=== PATIENT | female | born 1970 | race Caucasian/White ===

== ENCOUNTER 2016-05-03 21:06 | Emergency (ER) | payer SELFPAY ==
[~2016-05-03] VITALS: Ht 160 cm; Wt 56.7 kg
[2016-05-03 21:08] VITALS: BP 144/89
--- NOTE | 2016-05-03 21:19 | NUR ---
PAC NUSHA AT BEDSIDE FOR EVAL.
--- NOTE | 2016-05-03 22:12 | NUR ---
DR. BARRAZA AT BEDSIDE FOR EVAL.
[2016-05-03] MEDS ORDERED: TDAP [DIPH/PERTUSSIS/TET] 0.5 ML VIAL IM ONE ×2 (22:22→22:30)
[2016-05-03] MEDS ORDERED: CEPHALEXIN MONOHYDRATE 500 MG CAPSULE PO ONE ×2 (22:22→22:30)
[2016-05-03] MEDS ORDERED: SODIUM BICARBONATE 5 ML VIAL TP ONE (22:30)
[2016-05-03] MEDS ORDERED: LIDOCAINE 1%-EPI 1:100,000 20 ML VIAL TP ONE (22:30)
--- NOTE | 2016-05-03 22:36 | NUR ---
DR. BARRAZA AT BEDSIDE FOR LAC REPAIR
== END 2016-05-03 23:00 | disposition home or self-care (01) ==
LOC: ER 21:09
DX: S61.411A Laceration without foreign body of right hand, initial encounter (principal); W45.8XXA Other foreign body or object entering through skin, initial encounter; Y93.9 Activity, unspecified; Y92.9 Unspecified place or not applicable; Y99.9 Unspecified external cause status
CPT/HCPCS: 12001; 90715; A6402; A4606; Z7610

== ENCOUNTER 2019-01-09 10:46 | Emergency (ER) | payer MEDICAID ==
[~2019-01-09] VITALS: Ht 160 cm; Wt 59.0 kg
[2019-01-09 10:55] VITALS: BP 143/74
--- NOTE | 2019-01-09 11:28 | NUR ---
DR RAINES AT BEDSIDE
== END 2019-01-09 11:42 | disposition home or self-care (01) ==
LOC: ER 10:47
DX: J01.90 Acute sinusitis, unspecified (principal); Z60.2 Problems related to living alone

== ENCOUNTER 2020-04-18 21:12 | Emergency (ER) | payer MEDICAID ==
[~2020-04-18] VITALS: Ht 160 cm; Wt 59.0 kg
--- NOTE | 2020-04-18 21:35 | NUR ---
PATIENT CAME TO THE ER BED 2 C/O LEFT EYEBROW LACERATION S/P FALL AT HOME. PATIENT STATES, "I KNOW I AM DEHYDRATED, I HAVEN'T BEEN DRINKING WATER, JUST GIVE ME WATER." PATIENT IS AAOX4. NO SOB. BREATHING EVENLY AND UNLABORED ON ROOM AIR.
--- NOTE | 2020-04-18 21:56 | NUR ---
STEEL CHIPPER AT BEDSIDE FOR BLOOD DRAW
[2020-04-18 22:11] LABS: BASOPHILS % (AUTO) 0.3 % (0.0-2.0); EOSINOPHILS % (AUTO) 0.5 % (0.0-6.0); HEMATOCRIT 44 % (33-45); HEMOGLOBIN 14.9 g/dL (11.5-14.8); LYMPHOCYTES # (AUTO) 1.4 /CMM (0.8-4.8); LYMPHOCYTES % (AUTO) 13.5 % (20.0-44.0); MEAN CORPUSCULAR HGB CONC 34 g/dl (31.0-36.0); MEAN CORPUSCULAR VOLUME 94 fL (82-100); MONOCYTES # (AUTO) 0.6 /CMM (0.1-1.30); MONOCYTES % (AUTO) 5.6 % (2.0-12.0); NEUTROPHILS # (AUTO) 8.1 /CMM (1.8-8.9); NEUTROPHILS % (AUTO) 80.1 % (43.0-81.0); PLATELET COUNT (AUTO) 212 /CMM (150-450); RED BLOOD CELL COUNT(AUTO) 4.67 MIL/uL (4.0-5.2); WHITE BLOOD COUNT (AUTO) 10.1 K/uL (4.3-11.0)
[2020-04-18 22:19] LABS: CALCIUM, SERUM 8.9 mg/dL (8.5-10.1); CARBON DIOXIDE 29 mmol/L (21-32); CHLORIDE 102 mmol/L (98-107); GLUCOSE 113 mg/dL (74-106); SODIUM SERUM 139 mmol/L (136-145); UREA NITROGEN, BLOOD 16 mg/dL (7-18)
[2020-04-18] MEDS ORDERED: LIDOCAINE HCL/MPF 1% 30 ML VIAL IJ ONE (23:40)
--- NOTE | 2020-04-19 00:11 | NUR ---
Patient discharged to home in stable condition. Written and verbal after care instructions given. Patient verbalizes understanding of instruction.
[2020-04-19 01:05] VITALS: BP 132/75
== END 2020-04-19 00:11 | disposition home or self-care (01) ==
LOC: ER 21:12
DX: S01.112A Laceration without foreign body of left eyelid and periocular area, initial encounter (principal); R55 Syncope and collapse; R51.9 Headache, unspecified; Z60.2 Problems related to living alone; X58.XXXA Exposure to other specified factors, initial encounter; Y93.89 Activity, other specified; Y92.89 Other specified places as the place of occurrence of the external cause; Y99.8 Other external cause status
CPT/HCPCS: 12013; 36415; 70450; 80048; 84484; 85025; 93005; 99285; A6403; J3490